=== PATIENT | female | born 1990 | race Caucasian/White ===

== ENCOUNTER 2017-08-10 02:50 | Emergency (ER) | payer OTHER ==
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
[2017-08-10] MEDS ORDERED: BUPR-126 PO (03:12)
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
[2017-08-10 04:30] VITALS: BP 118/86
== END 2017-08-10 04:54 | disposition home or self-care (01) ==
LOC: ER 02:55
DX: S16.1XXA Strain of muscle, fascia and tendon at neck level, initial encounter (principal); S20.212A Contusion of left front wall of thorax, initial encounter; V49.88XA Car occupant (driver) (passenger) injured in other specified transport accidents, initial encounter
CPT/HCPCS: 72125; 99284